=== PATIENT | female | born 1955 | race Hispanic/Latino ===

== ENCOUNTER 2018-11-18 08:27 | Emergency (ER) | payer BC, OTHER ==
--- NOTE | 2018-11-18 10:41 | RAD ---
CHEST 2 VIEWS: HISTORY: Cough. FINDINGS: No comparison. Cardiac silhouette and pulmonary vasculature are unremarkable. Mediastinum is midlin e. No confluent airspace consolidation, pneumothorax, or pleural fluid. IMPRESSION: No active cardiopulmonary abnormalities are demonstrated. POS: [facility]
== END 2018-11-18 09:18 | disposition home or self-care (01) ==
LOC: SCSER 08:27
DX: J06.9 Acute upper respiratory infection, unspecified (principal); E78.5 Hyperlipidemia, unspecified; I10 Essential (primary) hypertension; F32.9 Major depressive disorder, single episode, unspecified
CPT/HCPCS: 71046